=== PATIENT | male | born 2000 | race Caucasian/White ===

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

== ENCOUNTER 2024-06-27 06:47 | Emergency (ER) | payer BC ==
[2024-06-27 07:17] VITALS: BP 108/67; PULSE 67
== END 2024-06-27 07:42 | disposition home or self-care (01) ==
LOC: JD.ED 06:47
DX: Z76.0 Encounter for issue of repeat prescription (principal); F90.9 Attention-deficit hyperactivity disorder, unspecified type; Z79.899 Other long term (current) drug therapy; Z91.030 Bee allergy status; Z91.048 Other nonmedicinal substance allergy status
CPT/HCPCS: 99281; 99282